=== PATIENT | male | born 1985 | race Caucasian/White ===

== ENCOUNTER 2023-10-06 08:29 | Inpatient (IN) | payer SELFPAY ==
[~2023-10-06] VITALS: Ht 167.6 cm; Wt 77.1 kg
[2023-10-06 08:59] LABS: BASOPHILS % 0.7 % (0.0-2.0); EOSINOPHILS % 3.6 % (0.0-5.0); HEMATOCRIT. 46.5 % (42.0-52.0); HEMOGLOBIN. 15.4 g/dL (14.0-18.0); LYMPHOCYTES % 13.8 % (20.0-50.0); MEAN CORPUSCULAR HEMOGLOBIN 27.6 pg (28.0-32.0); MEAN CORPUSCULAR HGB CONC 33.1 g/dL (31.0-37.0); MEAN CORPUSCULAR VOLUME 83.4 fL (80.0-94.0); MEAN PLATELET VOLUME 7.4 fl (7.4-10.4); MONOCYTES % 7.2 % (2.0-8.0); NEUTROPHILS % 74.7 % (40.0-76.0); PLATELET 429 x1000/uL (130-400); RED BLOOD CELL COUNT 5.57 mill/uL (4.7-6.1); RED CELL DISTRIBUTION WIDTH 12.8 % (11.6-14.6); WHITE BLOOD COUNT 14.5 x1000/uL (4.5-11.0)
[2023-10-06 09:31] LABS: PROTHROMBIN TIME 11.5 sec (9.6-11.0)
[2023-10-06] MEDS: SODIUM CHLORIDE 0.9% 1,000 ML IV ONE (09:36)
[2023-10-06] MEDS: FAMOTIDINE 20MG/2ML VIAL IV STA (09:37)
[2023-10-06] MEDS: MORPHINE SULFATE 4 MG/ML INJ (FOR IV/IM USE) IV STA (09:37)
[2023-10-06] MEDS: ONDANSETRON HCL 4MG/2ML INJ IV STA (09:37)
[2023-10-06 09:39] LABS: ALANINE AMINOTRANSFERASE 97 IU/L (10-49); ASPARTATE AMINOTRANSFERASE 52 IU/L (<34); BILIRUBIN TOTAL 0.7 mg/dL (0.1-1.0); CALCIUM 9.7 mg/dL (8.7-10.4); CARBON DIOXIDE 18 mEq/L (21-32); CHLORIDE 104 mEq/L (98-107); CREATININE 0.9 mg/dL (0.6-1.3); GLUCOSE 100 mg/dL (70-105); POTASSIUM 3.5 mEq/L (3.5-5.1); PROTEIN TOTAL 7.9 g/dL (6.0-8.3); SODIUM 140 mEq/L (136-145); UREA NITROGEN BLOOD 10 mg/dL (9-23)
[2023-10-06] MEDS: MORPHINE SULFATE 4 MG/ML INJ (FOR IV/IM USE) IV ONE (11:07)
[2023-10-06 12:00] VITALS: BP 131/72; PULSE 77; RESP 18; TEMP 97.8
[2023-10-06 12:32] VITALS: BP 131/72; PULSE 77; RESP 18; TEMP 97.8
[2023-10-06] MEDS ORDERED: DIPHENHYDRAMINE 50MG/ML VIAL IV PRN (13:00)
[2023-10-06] MEDS ORDERED: HYDROCODONE/ACETAMINOPHEN 5/325MG TABLET PO PRN (13:00)
[2023-10-06] MEDS ORDERED: ONDANSETRON HCL 4MG/2ML INJ IV PRN (13:00)
[2023-10-06] MEDS ORDERED: CLONIDINE 0.1MG TABLET PO PRN (13:00)
[2023-10-06] MEDS ORDERED: IPRATROPIUM/ALBUTEROL 0.5-3(2.5)MG/3ML NEB HHN PRN (13:00)
[2023-10-06] MEDS ORDERED: NALOXONE HCL 0.4MG/ML VIAL IV PRN (13:15)
[2023-10-06 16:00] VITALS: BP 117/79; PULSE 62; RESP 19; TEMP 98.8
[2023-10-06 20:00] VITALS: BP 124/80; PULSE 71; RESP 20; TEMP 97.9
[2023-10-07] VITALS: BP 122/73; PULSE 60; RESP 20; TEMP 97.9
[2023-10-07 04:00] VITALS: BP 112/68; PULSE 63; RESP 20; TEMP 97.5
[2023-10-07 06:10] LABS: BASOPHILS % 0.7 % (0.0-2.0); EOSINOPHILS % 4.1 % (0.0-5.0); HEMATOCRIT. 40.4 % (42.0-52.0); HEMOGLOBIN. 13.7 g/dL (14.0-18.0); MEAN CORPUSCULAR HEMOGLOBIN 27.4 pg (28.0-32.0); MEAN CORPUSCULAR HGB CONC 33.9 g/dL (31.0-37.0); MEAN CORPUSCULAR VOLUME 80.9 fL (80.0-94.0); MEAN PLATELET VOLUME 7.4 fl (7.4-10.4); MONOCYTES % 9.6 % (2.0-8.0); NEUTROPHILS % 63.6 % (40.0-76.0); PLATELET 376 x1000/uL (130-400); RED BLOOD CELL COUNT 4.99 mill/uL (4.7-6.1); RED CELL DISTRIBUTION WIDTH 12.6 % (11.6-14.6); WHITE BLOOD COUNT 8.6 x1000/uL (4.5-11.0)
[2023-10-07 06:18] LABS: ALANINE AMINOTRANSFERASE 73 IU/L (10-49); ALBUMIN 4.6 g/dL (3.2-4.8); ASPARTATE AMINOTRANSFERASE 33 IU/L (<34); BILIRUBIN TOTAL 0.8 mg/dL (0.1-1.0); CALCIUM 9.2 mg/dL (8.7-10.4); CARBON DIOXIDE 27 mEq/L (21-32); CHLORIDE 105 mEq/L (98-107); CREATININE 0.8 mg/dL (0.6-1.3); GLUCOSE 91 mg/dL (70-105); POTASSIUM 3.7 mEq/L (3.5-5.1); PROTEIN TOTAL 7.6 g/dL (6.0-8.3); SODIUM 139 mEq/L (136-145); UREA NITROGEN BLOOD 12 mg/dL (9-23)
[2023-10-07 08:00] VITALS: BP 115/81; PULSE 59; RESP 20; TEMP 98.4
[2023-10-07 12:00] VITALS: BP 118/77; PULSE 88; RESP 20; TEMP 97.3
[2023-10-07 12:48] VITALS: BP 135/85; PULSE 74; TEMP 97.9; O2SAT 100
== END 2023-10-07 14:09 | disposition home or self-care (01) | DRG 251 ==
LOC: ER 08:53 → 6EST 10:54 → EDBEDREQ 11:01 → EDBEDREQTM 11:01
PROVIDERS: ADMIT Internal Medicine; ATTEND Internal Medicine
DX: R10.84 Generalized abdominal pain (principal); D72.829 Elevated white blood cell count, unspecified; F10.129 Alcohol abuse with intoxication, unspecified; Z79.899 Other long term (current) drug therapy
CPT/HCPCS: 36415; 74176; 80053; 85025; 93970; 99285; J2270; J2405; J3490; J7030

== ENCOUNTER 2023-10-17 06:45 | Emergency (ER) | payer SELFPAY ==
[~2023-10-17] VITALS: Ht 170.2 cm; Wt 80.0 kg
[2023-10-17 07:11] VITALS: O2SAT 100
[2023-10-17 08:03] LABS: BASOPHILS % 0.5 % (0.0-2.0); EOSINOPHILS % 4.4 % (0.0-5.0); HEMATOCRIT. 43.2 % (42.0-52.0); HEMOGLOBIN. 14.4 g/dL (14.0-18.0); LYMPHOCYTES % 13.4 % (20.0-50.0); MEAN CORPUSCULAR HEMOGLOBIN 27.5 pg (28.0-32.0); MEAN CORPUSCULAR HGB CONC 33.3 g/dL (31.0-37.0); MEAN CORPUSCULAR VOLUME 82.7 fL (80.0-94.0); MEAN PLATELET VOLUME 7.5 fl (7.4-10.4); MONOCYTES % 6.7 % (2.0-8.0); PLATELET 422 x1000/uL (130-400); RED BLOOD CELL COUNT 5.23 mill/uL (4.7-6.1); RED CELL DISTRIBUTION WIDTH 12.6 % (11.6-14.6); WHITE BLOOD COUNT 11.6 x1000/uL (4.5-11.0)
[2023-10-17 08:06] LABS: CHLORIDE 106 mEq/L (98-107); POTASSIUM 3.4 mEq/L (3.5-5.1); SODIUM 139 mEq/L (136-145)
[2023-10-17 08:07] LABS: CARBON DIOXIDE 20 mEq/L (21-32)
[2023-10-17 08:08] LABS: CALCIUM 9.7 mg/dL (8.7-10.4)
[2023-10-17 08:12] LABS: CREATININE 0.8 mg/dL (0.6-1.3); GLUCOSE 113 mg/dL (70-105)
[2023-10-17 08:13] LABS: UREA NITROGEN BLOOD 10 mg/dL (9-23)
[2023-10-17 08:14] LABS: ALANINE AMINOTRANSFERASE 54 IU/L (10-49); ALBUMIN 4.9 g/dL (3.2-4.8); ASPARTATE AMINOTRANSFERASE 36 IU/L (<34)
[2023-10-17 08:15] LABS: BILIRUBIN TOTAL 0.6 mg/dL (0.1-1.0); PROTEIN TOTAL 8.4 g/dL (6.0-8.3)
[2023-10-17] MEDS: MORPHINE SULFATE 4 MG/ML INJ (FOR IV/IM USE) IV STA (09:03)
[2023-10-17] MEDS ORDERED: TOPUD PO (10:01)
[2023-10-17 10:30] VITALS: BP 117/68; PULSE 74; RESP 15; TEMP 98
== END 2023-10-17 10:40 | disposition home or self-care (01) ==
LOC: ER 06:45
DX: N50.812 Left testicular pain (principal)
CPT/HCPCS: 80053; 83690; 85025; 85610; 36415; 93976; 76870; 96374; 99285; J2270; Z7610 ×3

== ENCOUNTER 2023-11-05 06:41 | Emergency (ER) | payer MEDICAID ==
[~2023-11-05] VITALS: Ht 162.6 cm; Wt 65.0 kg
[~2023-11-05 06:41] MED LIST: TOPUD PO
[2023-11-05 07:00] VITALS: TEMP 98.4; O2SAT 100
[2023-11-05 07:41] LABS: BASOPHILS % 0.8 % (0.0-2.0); EOSINOPHILS % 7.2 % (0.0-5.0); HEMATOCRIT. 44.5 % (42.0-52.0); HEMOGLOBIN. 14.8 g/dL (14.0-18.0); LYMPHOCYTES % 20.9 % (20.0-50.0); MEAN CORPUSCULAR HGB CONC 33.3 g/dL (31.0-37.0); MEAN PLATELET VOLUME 7.4 fl (7.4-10.4); MONOCYTES % 7.2 % (2.0-8.0); NEUTROPHILS % 63.9 % (40.0-76.0); PLATELET 401 x1000/uL (130-400); RED CELL DISTRIBUTION WIDTH 12.4 % (11.6-14.6); WHITE BLOOD COUNT 10.3 x1000/uL (4.5-11.0)
[2023-11-05 07:48] LABS: CHLORIDE 104 mEq/L (98-107); POTASSIUM 3.5 mEq/L (3.5-5.1); SODIUM 138 mEq/L (136-145)
[2023-11-05 07:49] LABS: CALCIUM 10.7 mg/dL (8.7-10.4); CARBON DIOXIDE 23 mEq/L (21-32)
[2023-11-05 07:54] LABS: CREATININE 0.9 mg/dL (0.6-1.3); GLUCOSE 115 mg/dL (70-105); UREA NITROGEN BLOOD 9 mg/dL (9-23)
[2023-11-05] MEDS: ONDANSETRON HCL 4MG/2ML INJ IV ONE (08:59)
[2023-11-05] MEDS: MORPHINE SULFATE 4 MG/ML INJ (FOR IV/IM USE) IV ONE (09:07)
[2023-11-05 09:29] LABS: PROTHROMBIN TIME 11.2 sec (9.6-11.0)
[2023-11-05 13:19] LABS: CLARITY URINE CLEAR (CLEAR); COLOR URINE YELLOW (YELLOW); GLUCOSE URINE NEGATIVE (NEGATIVE); KETONES URINE 1+ (NEGATIVE); LEUKOCYTE ESTERASE URINE NEGATIVE (NEGATIVE); NITRITE URINE NEGATIVE (NEGATIVE); OCCULT BLOOD URINE NEGATIVE (NEGATIVE); PH URINE 6.5 (4.5-8.0); PROTEIN URINE NEGATIVE (NEGATIVE); SPECIFIC GRAVITY URINE 1.025 (1.005-1.030); UROBILINOGEN URINE 0.2 E.U./dL (0.2-1.0)
[2023-11-05 13:30] VITALS: BP 137/80; PULSE 76; RESP 16
== END 2023-11-05 13:44 | disposition home or self-care (01) ==
LOC: ER 06:41
DX: N44.00 Torsion of testis, unspecified (principal); N43.2 Other hydrocele; Z98.890 Other specified postprocedural states
CPT/HCPCS: 99285; 96374; 96375; 80048; 81003; 85025; 85610; 86850; 86900; 86901; 36415; 93976; 76870; J2405; J2270